=== PATIENT | female | born 1995 | race Two or more races ===

== ENCOUNTER 2022-05-27 01:31 | Emergency (ER) | payer SELFPAY ==
[~2022-05-27] VITALS: Ht 167.6 cm; Wt 95.0 kg
[2022-05-27] MEDS ORDERED: LIDOcaine Viscous 15ml cup MM STA (02:41)
[2022-05-27] MEDS ORDERED: BUPIVAcaine 0.5% W/EPI /PF 10ml vial IJ STA (02:43)
[2022-05-27] MEDS ORDERED: amox tr/potassium clavulanate 875/125mg TAB PO ONE (02:45)
[2022-05-27 03:07] VITALS: BP 150/80
[2022-05-27] MEDS ORDERED: AMOX-117 PO (03:12)
== END 2022-05-27 03:25 | disposition home or self-care (01) ==
LOC: ER 01:35
DX: K08.89 Other specified disorders of teeth and supporting structures (principal); F17.200 Nicotine dependence, unspecified, uncomplicated; Z79.899 Other long term (current) drug therapy
CPT/HCPCS: 64400; 99284; A6402; A6449